=== PATIENT | male | born 1945 | race Caucasian/White ===

== ENCOUNTER → 2021-05-10 | Day surgery (SDC) | payer MEDICARE ==
[~2021-05-10] MED LIST: FLU VACC QS2021-22(65YR UP)/PF 240 MCG/0.7 ML SYRINGE IM ONE; PROPOFOL 40 ML ONE
[2021-05-10 12:01] VITALS: BP 124/77; TEMP 97.6
== END ==
LOC: CSHSDC 11:13
PROVIDERS: ATTEND Internal Medicine Cardiovascular Disease
DX: I48.0 Paroxysmal atrial fibrillation (principal)
CPT/HCPCS: 93312; J2704